=== PATIENT | male | born 1985 | race Caucasian/White ===

== ENCOUNTER → 2024-03-31 07:11 | Outpatient (REF) | payer BC, SELFPAY | LOC: RSP 07:11 | PROVIDERS: ATTENDING PHYSICIAN Family Medicine | DX: J45.30 Mild persistent asthma, uncomplicated (principal) | CPT/HCPCS: 94727; 94729; 88738; 94010 ==

== ENCOUNTER → 2025-02-08 12:45 | Outpatient (REF) | payer OTHER, SELFPAY | LOC: RAD 12:45 | PROVIDERS: ATTENDING PHYSICIAN Nurse Practitioner Family | DX: R05.3 Chronic cough (principal) | CPT/HCPCS: 71046 ==